=== PATIENT | male | born 1990 | race African-American/Black ===

== ENCOUNTER 2022-07-02 09:11 | Emergency (ER) | payer SELFPAY ==
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
[2022-07-02 09:08] VITALS: BP 151/99; PULSE 77; RESP 18; TEMP 36.6; O2SAT 100; BMI 27.2
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
--- NOTE | 2022-07-02 09:25 | ECG_ITS ---
APPROVED REPORT Exam: Resting ECG HR:64 bpm ECG Measurements Heart Rate 64 AXES AL 184 P 70 QRSd 101 QRS 75 QT 404 T 67 QTc 414 Conclusion SINUS RHYTHM WITH OCCASIONAL SUPRAVENTRICULAR PREMATURE COMPLEXES EARLY REPOLARIZATION [ST ELEVATION WITH NORMALLY INFLECTED T-WAVE] BORDERLINE ECG UNCONFIRMED REPORT Electronically signed by : Guy Daniels MD 07/02/2022 22:35:25
[2022-07-02 09:26] LABS: Basophils # 0.1 K/mm3 (0-0.2); Basophils % 0.9 % (0.1-2.0); Eosinophils # 0.3 K/mm3 (0.0-0.4); Eosinophils % 2.5 % (0.1-12.0); Hematocrit 44.5 % (42.0-52.0); Hemoglobin 13.7 g/dL (14.1-18.0); Lymphocytes # 2.6 K/mm3 (0.7-4.5); Lymphocytes % 23.8 % (10-50); Mean Corpuscular HGB Conc 30.7 g/dL (31.8-35.4); Mean Corpuscular Hemoglobin 27.3 pg (27.0-31.2); Mean Corpuscular Volume 88.9 fl (80-94); Mean Platelet Volume 7.7 fl (7.4-10.4); Monocytes # 0.5 K/mm3 (0.1-1.0); Monocytes % 4.3 % (1.7-9.3); Neutrophils # 7.5 K/mm3 (1.8-7.8); Neutrophils % 68.5 % (37.0-80.0); Platelet Count 275 K/mm3 (142-424); Red Cell Distribution Width 14.4 % (11.5-17.5)
--- NOTE | 2022-07-02 09:28 | PC.NURSE ---
PT TO CT AT THIS TIME VIA STRETCHER
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
[2022-07-02 09:36] LABS: Chloride 103 mmol/L (98-107); Sodium 138 mmol/L (136-145)
[2022-07-02 09:38] LABS: Alanine Aminotransferase 20 U/L (12-78); Alkaline Phosphatase 53 U/L (38-126); Aspartate Amino Transferase 34 U/L (17-59); Bilirubin,Total 0.5 mg/dl (0.2-1.3); Blood Urea Nitrogen 16 mg/dl (9-20); Creatinine Clearance Estimated 118 mL/min (50-200); Estimated Glomerular Filt Rate 78 ml/min (>60); GFR (African American) 94 ML/MIN (>60)
[2022-07-02 09:39] LABS: Albumin Level 4.8 g/dl (3.5-5.0); Albumin/Globulin Ratio 1.6 (1.1-1.8); Calcium 9.3 mg/dl (8.4-10.2); Carbon Dioxide 28 mmol/L (22.0-30.0); Glucose 89 mg/dl (74-100); Lipase 375 U/L (23-300); Total Protein,Serum 7.8 g/dl (6.3-8.2)
[2022-07-02 09:42] LABS: Activated Partial Thrombo Time 24.4 seconds (22.8-30.6); Prothrombin Time 10.8 seconds (10.1-12.5)
[2022-07-02 10:01] LABS: Troponin I < 0.01 ng/ml (0.00-0.034)
--- NOTE | 2022-07-02 10:39 | PC.NURSE ---
DR MÉNDEZ AT BEDSIDE TO UPDATE PT
--- NOTE | 2022-07-02 10:44 | PC.NURSE ---
PT ASSISTED TO BR
--- NOTE | 2022-07-02 10:49 | PC.NURSE ---
DR MÉNDEZ AT BEDSIDE TO UPDATE PT
--- NOTE | 2022-07-02 10:59 | PC.NURSE ---
Pt tolerated transportation to and from CT. Lai florence re applied. Warm blankets remain on patient. Pt awake at this time. Pt placed on telemetry. Zoll reconnected. Oleary inserted. Family remains at bedside.
--- NOTE | 2022-07-02 11:15 | PC.NURSE ---
contacted rad to check on status of ct reads, spoke with judith in radiology, states has preliminary reports on CTAs states will send them down to us
--- NOTE | 2022-07-02 11:18 | PC.NURSE ---
PT GIVEN ICE CHIPS, OK PER DR MÉNDEZ
--- NOTE | 2022-07-02 11:21 | PC.NURSE ---
DR MÉNDEZ AT BEDSIDE TO UPDATE PT ON CT RESULTS
[2022-07-02 11:48] VITALS: BP 123/79; PULSE 85; RESP 18; TEMP 36.6; O2SAT 99
== END 2022-07-02 11:50 | disposition home or self-care (01) ==
PROVIDERS: Emergency Provider Student in an Organized Health Care Education/Training Program
DX: S20.219A Contusion of unspecified front wall of thorax, initial encounter (principal); S39.012A Strain of muscle, fascia and tendon of lower back, initial encounter; S83.91XA Sprain of unspecified site of right knee, initial encounter; V89.0XXA Person injured in unspecified motor-vehicle accident, nontraffic, initial encounter
CPT/HCPCS: 36415; 70450; 70496; 70498; 71045; 71275; 72125; 72128; 72131; 73562; 74174; 80053; 83690; 84484; 85025; 85610; 85730; 86850; 93005; 96360; 96374; 96375; 99291; J2405; Q9967